=== PATIENT | male | born 1970 | race African-American/Black ===

== ENCOUNTER 2018-06-15 13:04 | Emergency (ER) | payer MEDICARE, OTHER ==
[~2018-06-15] VITALS: Ht 172.7 cm; Wt 74.8 kg
[2018-06-15 13:25] LABS: BASOPHILS % (AUTO) 0 % (0-10); EOSINOPHILS # (AUTO) 0.1 10^3/uL (0.0-0.3); EOSINOPHILS % (AUTO) 1 % (0-10); HEMATOCRIT 36 % (40-54); HEMOGLOBIN 13.8 G/DL (13.3-17.7); LYMPHOCYTES # (AUTO) 0.9 X 10^3 (1.0-4.0); LYMPHOCYTES % (AUTO) 18 % (12-44); MEAN CORPUSCULAR HEMOGLOBIN 32 PG (25-34); MEAN CORPUSCULAR HGB CONC 38 G/DL (32-36); MEAN CORPUSCULAR VOLUME 85 FL (80-99); MEAN PLATELET VOLUME 8.7 FL (7.4-10.4); MONOCYTES # (AUTO) 0.4 X 10^3 (0.0-1.0); MONOCYTES % (AUTO) 7 % (0-12); NEUTROPHILS # (AUTO) 3.9 X 10^3 (1.8-7.8); NEUTROPHILS % (AUTO) 74 % (42-75); PLATELET COUNT 218 10^3/uL (130-400); RED BLOOD COUNT 4.27 10^6/uL (4.35-5.85); RED CELL DISTRIBUTION WIDTH 12.4 % (10.0-14.5); WHITE BLOOD COUNT 5.3 10^3/uL (4.3-11.0)
[2018-06-15 13:51] LABS: PROTHROMBIN TIME PATIENT 12.8 SEC (12.2-14.7)
[2018-06-15 13:55] LABS: ALANINE AMINOTRANSFERASE 25 U/L (0-55); ALKALINE PHOSPHATASE 54 U/L (40-136); BILIRUBIN,TOTAL 0.7 MG/DL (0.1-1.0); BUN/CREATININE RATIO 11; CALCIUM 8.6 MG/DL (8.5-10.1); CARBON DIOXIDE 24 MMOL/L (21-32); CHLORIDE 103 MMOL/L (98-107); CREATINE KINASE 468 U/L (30-200); CREATININE SERUM 0.84 MG/DL (0.60-1.30); GFR ESTIMATED > 60; GLUCOSE 129 MG/DL (70-105); POTASSIUM 3.5 MMOL/L (3.6-5.0); SODIUM 134 MMOL/L (135-145); TOTAL PROTEIN 6.7 GM/DL (6.4-8.2)
--- NOTE | 2018-06-15 13:58 | Diagnostic Imaging Report ---
INDICATION: Doesn't feel well. No prior studies are available for comparison. Ventricles and sulci are within normal limits. No sulcal effacement, midline shift or hemorrhage is detected. Cisterns are patent. Visualized paranasal sinuses are clear. IMPRESSION: No acute intracranial process is detected. Dictated by: Dictated on workstation # [id number]
[2018-06-15 14:14] LABS: CREATINE KINASE MB 4.5 NG/ML (<6.6); TSH (THYROID ANALYZER) 0.79 UIU/ML (0.35-4.94)
--- NOTE | 2018-06-15 14:14 | Diagnostic Imaging Report ---
PATIENT HISTORY: Dizziness, syncope. TECHNIQUE: Single frontal view of the chest. COMPARISON: None. FINDINGS: The lung volumes are normal. No focal consolidation is seen. No large pleural effusion or pneumothorax is seen. The cardiomediastinal silhouette is normal in size and contour. No acute osseous abnormality is seen. IMPRESSION: No acute pulmonary abnormality seen. Dictated by: Dictated on workstation # [id number]
[2018-06-15] MEDS ORDERED: NITROGLYCERIN 0.4 MG SL TABS BTL 25'S SL PRN (14:15)
[2018-06-15] MEDS ORDERED: SCOPOLAMINE 1.5 MG (TRANSDERM-SCOP) PATCH TD ONE (14:15)
[2018-06-15] MEDS ORDERED: ASPIRIN 81 MG CHEW (CHILDREN'S ASA) PO ONE (14:15)
[2018-06-15] MEDS ORDERED: NS 250 ML (IVPB) BAG IV ONE ×2 (15:00→15:30)
[2018-06-15] MEDS ORDERED: CATHETER FLUSH 10 ML SYR IV PRN (15:00)
[2018-06-15] MEDS ORDERED: IOHEXOL 350 MG/ML 150 ML (OMNIPAQUE 350) VIAL IV ONE ×2 (15:00→15:30)
--- NOTE | 2018-06-15 15:33 | Diagnostic Imaging Report ---
PROCEDURE: MR imaging of the brain without contrast. TECHNIQUE: Multiplanar, multisequence MR imaging of the brain was performed without contrast. INDICATION: Near syncope. Patient also has dizziness. FINDINGS: No diffusion restriction is identified to suggest acute ischemia. The normal expected flow-voids within the carotid siphons are seen. The ventricles and sulci are within normal limits. There is no midline shift. No acute intra-axial or extra-axial hemorrhage is detected. The corpus callosum is unremarkable. The sella and parasellar structures are unremarkable. IMPRESSION: Unremarkable noncontrast MRI of the brain. No acute infarct or evidence of acute intracranial hemorrhage is identified. Dictated by: Dictated on workstation # [id number]
--- NOTE | 2018-06-15 15:57 | Diagnostic Imaging Report ---
PROCEDURE: CT angiography of the chest with contrast. TECHNIQUE: Multiple contiguous axial images were obtained through the chest after uneventful bolus administration of intravenous contrast. Reconstructed CTA MIP acquisitions were also performed. INDICATION: Dizziness, presyncope. COMPARISON: None. FINDINGS: There is no evidence of acute pulmonary embolus to the first subsegmental division of the pulmonary arteries. Heart size is within normal limits. There is no large pericardial effusion. There is moderate calcified atherosclerosis of the left main coronary artery extending into the left anterior descending branch. No pathologically enlarged or morphologically abnormal adenopathy is seen within the mediastinum, otto, nor axillae. There is some mild soft tissue density within the anterosuperior mediastinum suggestive of residual thymic tissue. Evaluation of the lung windows demonstrates no focal consolidation, pleural effusion, nor pneumothorax. No suspicious pulmonary nodules or masses are identified. Bony structures show no acute abnormalities. No lytic or blastic bony lesions are seen. Included portions of the upper abdomen show partially visualized hypodensity of the left kidney that measures 1.5 x 2.2 cm. This is incompletely characterized on this exam. Note is made of potential internal septation. IMPRESSION: 1. No evidence of acute pulmonary embolus to the first subsegmental division of the pulmonary arteries. 2. No other acute cardiopulmonary process. 3. Moderate calcified coronary atherosclerosis as described above. Correlation with risk factors is recommended. 4. Partially visualized lesion in the left kidney suspicious for possible complex cyst. Neoplastic renal lesion cannot be excluded. Further evaluation with pre- and post-contrast CT of the abdomen is recommended and could be performed on a nonemergent basis. Dictated by: Dictated on workstation # [id number]
[2018-06-15 16:14] LABS: BILIRUBIN,URINE NEGATIVE (NEGATIVE); CLARITY,URINE CLEAR; COLOR,URINE YELLOW; GLUCOSE, URINE (UA) NEGATIVE (NEGATIVE); KETONES,URINE NEGATIVE (NEGATIVE); LEUKOCYTE ESTERASE ,URINE NEGATIVE (NEGATIVE); NITRITE,URINE NEGATIVE (NEGATIVE); PH,URINE 8 (5-9); PROTEIN,URINE NEGATIVE (NEGATIVE); UROBILINOGEN,URINE NORMAL (NORMAL)
[2018-06-15 16:28] LABS: AMPHETAMINE SCREEN, URINE NEGATIVE (NEGATIVE); BARBITURATE SCREEN URINE NEGATIVE (NEGATIVE); BENZODIAZEPINES SCREEN URINE POSITIVE (NEGATIVE); CANNABINOID SCREEN, URINE NEGATIVE (NEGATIVE); COCAINE SCREEN URINE NEGATIVE (NEGATIVE); METHADONE STAT NEGATIVE (NEGATIVE); METHAMPHETAMINE SCREEN URINE S NEGATIVE (NEGATIVE); OPIATE SCREEN URINE NEGATIVE (NEGATIVE); OXYCODONE STAT NEGATIVE (NEGATIVE); PROPOXYPHENE STAT NEGATIVE (NEGATIVE); TRICYCLIC ANTIDEPRESSANTS SCRE NEGATIVE (NEGATIVE)
[2018-06-15 16:31] LABS: RBC,URINE RARE /HPF
[2018-06-15 16:32] LABS: BACTERIA,URINE NEGATIVE /HPF; WBC,URINE RARE /HPF
[2018-06-15] MEDS ORDERED: NITROGLYCERIN 2% OINT 1 GM UNIT DOSE PACKET TOP ONE (16:45)
[2018-06-15 17:46] VITALS: BP 154/95
== END 2018-06-15 17:42 | disposition left against medical advice (07) ==
LOC: ER 13:05
DX: R42 Dizziness and giddiness (principal); R55 Syncope and collapse; I10 Essential (primary) hypertension
CPT/HCPCS: 36415; 70450; 70551; 71045; 71275; 80053; 80306; 80320; 81000; 82550; 82553; 83880; 84443; 84484; 85025; 85610; 85730; 93005; 93041